=== PATIENT | male | born 1975 | race Caucasian/White ===

== ENCOUNTER 2017-04-15 04:39 | Inpatient (IN) | payer MEDICAID ==
[~2017-04-15] VITALS: Ht 190.5 cm; Wt 113.4 kg
[2017-04-15 04:43] VITALS: BP 126/89
--- NOTE | 2017-04-15 04:52 | NUR ---
PT WHEELCHAIRED TO ER BED 03
--- NOTE | 2017-04-15 05:00 | NUR ---
Patient being evaluated by at bedside.
--- NOTE | 2017-04-15 05:00 | NUR ---
41Y/M PT. PRESENTS TO ED WITH C/O DIZZINESS WITH N/V X 2 HRS. PT. HAX. MYASTENIA GRAVIS, CARDIA ARRHYTHMIA. AAO X4, UNABLE TO AMBULATE AT THIS TIME, RESPIRTAIONS ROOM AIR, EVEN AND UNLABORED. BL LUNGS CLEAR. ABODOMEN SOFT, NON TENDER, ACTIVE BSX4. C/O PAIN 3/10. VSS, ER MADE AWARE OF PT. STATUS.
[2017-04-15] MEDS ORDERED: NACL 0.9% 1,000 ML IV ONE ×3 (05:09→06:00)
[2017-04-15] MEDS ORDERED: KETOROLAC 30 MG/ML VIAL IVP ONE (05:15)
[2017-04-15] MEDS ORDERED: ONDANSETRON 4 MG/2 ML VIAL IVP ONE (05:15)
[2017-04-15] MEDS ORDERED: PYRIDOSTIGMINE 60 MG TAB PO STA (05:26)
[2017-04-15] MEDS ORDERED: NACL 0.9% 1,000 ML IV SCH (05:53)
--- NOTE | 2017-04-15 05:53 | NUR ---
CALLED BRAYAN NARVAEZ PHARMACIST FOR MESTINON 60 MG PO STAT. BRAYAN STATED THAT HE WILL BE IN THE [facility]
[2017-04-15] MEDS ORDERED: MORPHINE SULFATE 2 MG/ML SYR IVP PRN (05:55)
[2017-04-15] MEDS ORDERED: HYDROcodone/APAP 5/325 MG 1 TAB TAB PO PRN (05:55)
[2017-04-15] MEDS ORDERED: ONDANSETRON 4 MG/2 ML VIAL IVP PRN (05:55)
[2017-04-15] MEDS ORDERED: ACETAMINOPHEN 325 MG TAB PO PRN (05:55)
[2017-04-15 06:07] LABS: BASOPHILS # (AUTO) 0.4 K/uL (0.00-0.22); BASOPHILS % (AUTO) 4.2 % (0.0-2.0); EOSINOPHILS # (AUTO) 0.2 K/uL (0-0.4); EOSINOPHILS % (AUTO) 1.7 % (0.0-4.0); HEMATOCRIT 47.3 % (36-52); HEMOGLOBIN 15.4 g/dL (12.0-18.0); LYMPHOCYTES % (AUTO) 10.6 % (20.5-51.1); MEAN CORPUSCULAR HEMOGLOBIN 28 pg (27-31); MEAN CORPUSCULAR HGB CONC 33 g/dL (33-37); MEAN CORPUSCULAR VOLUME 85 fL (80-94); MONOCYTES # (AUTO) 0.6 K/uL (0.8-1.0); MONOCYTES % (AUTO) 6.2 % (1.7-9.3); NEUTROPHILS # (AUTO) 7.4 K/uL (1.8-7.7); NEUTROPHILS % (AUTO) 77.3 % (42.2-75.2); PLATELET COUNT (AUTO) 319 K/uL (140-450); RED BLOOD CELL COUNT(AUTO) 5.54 MIL/uL (4.20-6.10); RED CELL DISTRIBUTION WIDTH 12.3 % (11.6-13.7); WHITE BLOOD COUNT (AUTO) 9.6 K/uL (4.8-10.8)
[2017-04-15] MEDS ORDERED: fentaNYL 0.05 MG/ML VIAL IVP ONE (06:15)
[2017-04-15] MEDS ORDERED: KETOROLAC 15 MG/ML VIAL IVP ONE (06:15)
[2017-04-15] MEDS ORDERED: METOCLOPRAMIDE 10 MG/2 ML INJ VIAL IVP ONE (06:15)
[2017-04-15 06:31] LABS: ALBUMIN 3.7 g/dL (3.4-5.0); ANION GAP 10.8 (8-16); CARBON DIOXIDE 28.5 mmol/L (21-32); POTASSIUM 3.3 mmol/L (3.5-5.1); TOTAL BILIRUBIN 0.7 mg/dL (0.0-1.0)
[2017-04-15 06:33] LABS: PROTHROMBIN TIME 10.4 secs (10.8-13.4)
[2017-04-15] MEDS ORDERED: MES60 PO (06:40)
[2017-04-15] MEDS ORDERED: ONDA4ODT1 PO (06:40)
[2017-04-15] MEDS ORDERED: FLUT1DSK4 IH (06:40)
--- NOTE | 2017-04-15 06:45 | NUR ---
Patient will be admitted to care of DR. APPIAH. Admited to TELEMETRY. Will go to room 119A. Belongings list completed. Report to AYANNA CURTIS.
[2017-04-15 06:53] LABS: CHOL/HDL RATIO 3.9 (1-4.5)
[2017-04-15 06:55] VITALS: BP 133/80
--- NOTE | 2017-04-15 06:55 | NUR ---
PT ARRIVE AT UNIT, PT STABLE, AAOX4, NO DISTRESS NOTED, CALL LIGHT WITHIN REACH.
--- NOTE | 2017-04-15 06:56 | NUR ---
ADMINISTERED MESTINON 60MG PO, GIVEN BY BRAYAN NARVAEZ PHARMACIST. EDUCATE PT TO REPORT ANY S/S OF ADVERSE RXN
--- NOTE | 2017-04-15 07:15 | NUR ---
GAVE BEDSIDE REPORT TO DAY SHIFT NURSE MIN RN, PT STABLE NO DISTRESS NOTED.
--- NOTE | 2017-04-15 07:16 | NUR ---
RECEIVED REPORT FROM NIGHT RN, PT A/OX4, PT AWAKE IN BED ON 2L 02 VIA NC, PT STATES 6/10 PAIN IN HEAD, WILL MEDICATE ORDERED, NO OTHER S/S OF ACUTE DISTRESS, IV PATENT AND INTACT, SAFETY PRECAUTIONS TAKEN, CALL LIGHT WITHIN REACH, WILL CONT TO MONITOR.
[2017-04-15] MEDS ORDERED: PANTOPRAZOLE 40 MG TABEC PO SCH (09:00)
[2017-04-15] MEDS ORDERED: DOCUSATE 100 MG/10 ML UDC GT SCH (09:00)
[2017-04-15] MEDS ORDERED: ONDANSETRON 4 MG ODT PO PRN (09:05)
--- NOTE | 2017-04-15 09:09 | NUR ---
DUE MEDICATIONS GIVEN WITH EDUCATION, PT VERBALIZED UNDERSTANDING, PT TOLERATED ALL MEDS WELL, CALL LIGHT WITHIN REACH, WILL CONT TO MONITOR.
[2017-04-15] MEDS ORDERED: SUMAtriptan 50 MG TAB PO SCH (10:00)
--- NOTE | 2017-04-15 10:24 | NUR ---
PT STATES HE WANTS TO LEAVE, DR BRYSON AT BEDSIDE, RISK OF LEAVING AGAINST MEDICAL ADVICE GIVEN, PT VERBALIZED UNDERSTANDING, PT SIGNED AMA, IV TAKEN OUT TIP INTACT, NO S/S OF ACUTE DISTRESS, PT STATED HE WANTED TO WALK TO FRONT LOBBY, TELE BOX REMOVED, PT REMAINED STABLE.
[2017-04-15] MEDS ORDERED: PYRIDOSTIGMINE 60 MG TAB PO SCH (12:00)
--- NOTE | 2017-04-15 14:43 | NUR ---
CM NOTE RETRO REVIEW FAXED TO [facility] / FAX# [phone], C: [phone], OPT. 5, 1
[2017-04-16] MEDS ORDERED: PANTOPRAZOLE 40 MG TABEC PO SCH (09:00)
== END 2017-04-15 10:24 | disposition left against medical advice (07) | DRG 54 ==
LOC: MED 04:39 → MTU 05:53
PROVIDERS: ADMIT Family Medicine Sports Medicine; ATTEND Family Medicine Sports Medicine
DX: G43.909 Migraine, unspecified, not intractable, without status migrainosus (principal); G70.00 Myasthenia gravis without (acute) exacerbation; E78.5 Hyperlipidemia, unspecified; J45.909 Unspecified asthma, uncomplicated; E87.6 Hypokalemia; Z53.21 Procedure and treatment not carried out due to patient leaving prior to being seen by health care provider; Z87.11 Personal history of peptic ulcer disease
CPT/HCPCS: 36415; 36600; 71010; 80053; 82150; 82803; 83036; 83605; 83690; 83880; 84484; 85025; 85610; 85730; 87040; 87081; 93005; 96361; 96374; 96375; 96376; 99285; J1885; J2405; J2765; J3010; J7030; Q0092